=== PATIENT | male | born 1945 | race Caucasian/White ===

== ENCOUNTER 2018-11-23 08:01 | Emergency (ER) | payer MEDICARE, OTHER ==
[2018-11-23] MEDS ORDERED: LIDOCAINE 2% URO-JET 5 ML SYRINGE UR STA (08:19)
--- NOTE | 2018-11-23 08:20 | ED Physician Documentation ---
PD HPI MALE - Stated complaint Stated Complaint: SIDE PX - Chief complaint Chief Complaint: Abd Pain - History obtained from History obtained from: Patient - History of Present Illness Timing - onset: How many hours ago (6) Timing - duration: Hours (6) Timing - details: Still present Associated symptoms: Unable to urinate, Abdominal pain Similar symptoms before: No diagnosis - Additional information Additional information: The patient is a 73-year-old male who presents with lower abdominal pain and inability to urinate. His symptoms started at 2 AM, about 6 hours prior to arrival. He reports associated nausea, without vomiting. He denies fever or ba ck pain. He has a history of similar but less severe symptoms twice over the past 6 months. Both of those episodes resolved spontaneously without seeking medical attention. He has a history of BPH, for which he is on Flomax. Review of Systems Constitutional: denies: Fever Nose: denies: Congestion Cardiac: denies: Chest pain / pressure Respiratory: denies: Dyspnea, Cough GI: reports: Abdominal Pain, Nausea. denies: Vomiting, Diarrhea : reports: Unable to Void. denies: Dysuria Skin: denies: Rash Musculoskeletal: denies: Back pain Neurologic: denies: Focal weakness, Numbness, Headache PD PAST MEDICAL HISTORY - Past Medical History Cardiovascular: High cholesterol Respiratory: None Endocrine/Autoimmune: None GI: None : Benign prostate hypertrophy HEENT: None Psych: None Musculoskeletal: None Derm: None - Past Surgical History Ortho: Other - Present Medications Home Medications: Ambulatory Orders Medication Instructions Recorded Confirmed Aspirin [Aspir-Low] 81 mg PO DAILY 06/23/16 06/24/16 Atorvastatin Calcium 20 mg PO DAILY 06/23/16 06/24/16 Tamsulosin HCl [Flomax] 0.4 mg PO DAILY 06/23/16 06/24/16 - Allergies Allergies/Adverse Reactions: Allergies Allergy/AdvReac Type Severity Reaction Status Date / Time No Known Drug Allergies Allergy Verified 11/23/18 08:14 - Social History Does the pt smoke?: No PD ED PE NORMAL - Vitals Vital signs reviewed: Yes (hypertensive) - General General: Alert and oriented X 3, Well developed/nourished, Other (Standing at the bedside.) - HEENT HEENT: Atraumatic, Pharynx benign - Neck Neck: No adenopathy, No JVD - Cardiac Cardiac: RRR, No murmur - Respiratory Respiratory: No respiratory distress, Clear bilaterally - Abdomen Abdomen: Normal bowel sounds, Soft, Other (Lower abdominal pain, with distended bladder.) - Back Back: No CVA TTP - Derm Derm: No rash - Extremities Extremities: No edema, No calf tenderness / cord - Neuro Neuro: Alert and oriented X 3, No motor deficit, Normal speech Results - Vitals Vitals: Vital Signs - 24 hr 11/23/18 08:05 Temperature 36.5 C Heart Rate 76 Respiratory 18 Rate Blood Pressure 184/81 H O2 Saturation 95 Oxygen O2 Source Room air - Labs Labs: Laboratory Tests 11/23/18 08:32 Urine Color YELLOW Urine Clarity CLEAR Urine pH 5.0 Ur Specific [place] 1.020 Urine Protein NEGATIVE Urine Glucose (UA) NEGATIVE Urine Ketones NEGATIVE Urine Occult Blood LARGE H Urine Nitrite NEGATIVE Urine Bilirubin NEGATIVE Urine Urobilinogen 0.2 (NORMAL) Ur Leukocyte Esterase NEGATIVE Urine RBC 11-25 H Urine WBC 0-3 Ur Squamous Epith Cells NONE SEEN Urine Bacteria Rare Urine Mucus Few Strands Ur Microscopic Review INDICATED Urine Culture Comments NOT INDICATED PD MEDICAL DECISION MAKING - ED course Complexity details: reviewed results, re-evaluated patient, considered differential, d/w patient, d/w family ED course: The patient's presentation is most consistent with acute urinary retention. His urinalysis reveals no evidence to suggest urinary tract infection. Treatment in the emergency department included administration of Sales catheter with subsequent drainage of nearly 1 L clear yellow urine. On reexamination his abdomen is benign. A Sales leg bag was placed. I discussed his condition with Dr. Peterson, his urologist, who agrees with keeping the Sales catheter in place. I discussed with him and his the importance of follow-up with his urologist, as well as potentially worrisome signs or symptoms that should prompt reevaluation in the emergency department. Departure - Departure Disposition: 01 Home, Self Care Clinical Impression: Acute urinary retention Condition: Stable Instructions: ED Catheter Care Sales, ED Retention Urinary Male Follow-Up: Raffaele Peterson MD [Physician No Access] - Simon Crockett MD [Primary Care Provider] - Comments: Keep the Sales catheter in place for 1 week. Follow-up with your urologist next week. Call today or tomorrow to schedule the appointment for next week. Return to the emergency department if you develop problems with the Sales catheter, fever, vomiting, increasing abdominal pain, or otherwise worsening symptoms.
[2018-11-23 09:01] LABS: BILIRUBIN,URINE NEGATIVE (NEGATIVE); GLUCOSE, URINE (UA) NEGATIVE (NEGATIVE); KETONES,URINE (UA) NEGATIVE (NEGATIVE); LEUKOCYTE ESTERASE, URINE NEGATIVE (NEGATIVE); NITRITE,URINE NEGATIVE (NEGATIVE); OCCULT BLOOD,URINE LARGE (NEGATIVE); PROTEIN,URINE NEGATIVE (NEGATIVE); UROBILINOGEN,URINE 0.2 (NORMAL) E.U./dL (NORMAL)
[2018-11-23 09:04] LABS: CLARITY,URINE CLEAR (CLEAR)
[2018-11-23 09:17] LABS: SQUAMOUS EPITHELIAL CELL,UR NONE SEEN (<= Few)
[2018-11-23 09:18] LABS: BACTERIA,URINE Rare /HPF (None Seen); MUCUS,URINE Few Strands
[2018-11-23 10:47] VITALS: BP 137/76
== END 2018-11-23 10:47 | disposition home or self-care (01) ==
LOC: ED 08:01
DX: R33.9 Retention of urine, unspecified (principal)
CPT/HCPCS: 51702; 81001; 81003; 87086; 99282; 99283

== ENCOUNTER 2018-12-07 01:21 | Emergency (ER) | payer MEDICARE, OTHER ==
[2018-12-07 01:28] VITALS: BP 178/98
--- NOTE | 2018-12-07 01:35 | ED Physician Documentation ---
History of Present Illness - Stated complaint Stated Complaint: MALE - Chief complaint Chief Complaint: General - History obtained from History obtained from: Patient - History of Present Illness Timing: Prior to arrival - Additonal information Additional information: Patient is a 73-year-old male with history of BPH presenting with urinary retention over the past several hours. Patient was in this ED about 2 weeks ago for similar issues and a Sales catheter was placed. Patient followed up with his urologist yesterday and the catheter was removed, but his urologist warned him that retention can return and he possibly would need a repeat catheterization. Patient has doubled up on his Flomax at home and is otherwise to follow-up with his urologist to discuss further options and interventions including TURP. Patient describes suprapubic abdominal tenderness, Dysuria but denies other abdominal pain, fever, vomiting, Hematuria or other complaints. No other improving or worsening factors noted. Review of Systems Constitutional: denies: Fever GI: reports: Abdominal Pain : reports: Dysuria PD PAST MEDICAL HISTORY - Past Medical History Past Medical History: Yes Cardiovascular: High cholesterol Respiratory: None Endocrine/Autoimmune: None GI: None : Benign prostate hypertrophy HEENT: None Psych: None Musculoskeletal: None Derm: None - Past Surgical History Past Surgical History: Yes Ortho: Other - Present Medications Home Medications: Ambulatory Orders Medication Instructions Recorded Confirmed Aspirin [Aspir-Low] 81 mg PO DAILY 06/23/16 12/07/18 Atorvastatin Calcium 20 mg PO DAILY 06/23/16 12/07/18 Tamsulosin HCl [Flomax] 0.4 mg PO DAILY 06/23/16 12/07/18 Ciprofloxacin [Cipro] 500 mg PO Q12H #14 tablet 12/07/18 - Allergies Allergies/Adverse Reactions: Allergies Allergy/AdvReac Type Severity Reaction Status Date / Time No Known Drug Allergies Allergy Verified 12/07/18 01:27 - Social History Does the pt smoke?: No Smoking Status: Never smoker Does the pt drink ETOH?: Yes Does the pt have substance abuse?: No PD ED PE NORMAL - Vitals Vital signs reviewed: Yes (hypertensive (similar to previous visit)) - General General: Alert and oriented X 3, No acute distress, Well developed/nourished - HEENT HEENT: Atraumatic - Cardiac Cardiac: RRR, No murmur - Respiratory Respiratory: No respiratory distress, Clear bilaterally - Abdomen Abdomen: Normal bowel sounds, Soft, Non distended. No: Non tender (Moderate suprapubic tenderness) - Derm Derm: Normal color, Warm and dry, No rash - Extremities Extremities: No deformity, No tenderness to palpate - Neuro Neuro: Alert and oriented X 3, No motor deficit, No sensory deficit - Psych Psych: Normal mood, Normal affect Results - Vitals Vitals: Vital Signs - 24 hr 12/07/18 01:23 Temperature 36.4 C L Heart Rate 88 Respiratory 16 Rate Blood Pressure 178/98 H O2 Saturation 98 Oxygen O2 Source Room air - Labs Labs: Laboratory Tests 12/07/18 01:38 Urine Color YELLOW Urine Clarity CLEAR Urine pH 6.0 Ur Specific [place] <=1.005 Urine Protein NEGATIVE Urine Glucose (UA) NEGATIVE Urine Ketones NEGATIVE Urine Occult Blood TRACE-INTA Urine Nitrite NEGATIVE Urine Bilirubin NEGATIVE Urine Urobilinogen 0.2 (NORMAL) Ur Leukocyte Esterase TRACE H Urine RBC 0-5 Urine WBC 6-10 H Ur Squamous Epith Cells FEW Squamous Urine Bacteria Few Ur Microscopic Review INDICATED Urine Culture Comments INDICATED PD MEDICAL DECISION MAKING - ED course Complexity details: reviewed results, re-evaluated patient, considered differential, d/w patient, d/w family ED course: Patient presenting with urinary retention likely due to his underlying BPH. Patient recently had Sales catheter removal and was warned against recurrent re tention. Do not find evidence that would indicate nephrolithiasis, pyelonephritis, or other acute or emergent intra-abdominal pathology at this time. No evidence of systemic illness or sepsis present. Patient able to urinate small amount on his own but bladder scan showed several hundred ccs retained. Sales catheter placed with appropriate return.UA concerning for infection and given symptoms and recent interpretation, feel most appropriate to treat with antibiotics. Patient received first dose of antibiotic's in the ED. Discussed return precautions, use of antibiotics at home, continue Flomax, as well as need to contact urology as soon as possible to schedule outpatient follow-up. Patient and voiced understanding and are comfortable with discharge plan. Departure - Departure Disposition: ED Transfer to [facility] Clinical Impression: Acute urinary retention Urinary tract infection Qualifiers: Urinary tract infection type: acute cystitis Hematuria presence: without hematuria Qualified Code(s): N30.00 - Acute cystitis without hematuria Condition: Good Instructions: ED UTI Cystitis Male Follow-Up: Simon Crockett MD [Primary Care Provider] - Within 3 Days Raffaele Peterson MD [Physician No Access] - Tomorrow Prescriptions: Ciprofloxacin [Cipro] 500 mg PO Q12H #14 tablet Comments: Please continue home medications as previously instructed. Please take ciprofloxacin as instructed to treat bladder infection. Please contact your urologist later today to discuss replacement of Sales catheter and further interventions. May also follow-up with primary care physician in next 2 to 3 days. Return to ED sooner if experience worsening symptoms or other concerns.
[2018-12-07 01:48] LABS: BILIRUBIN,URINE NEGATIVE (NEGATIVE); CLARITY,URINE CLEAR (CLEAR); GLUCOSE, URINE (UA) NEGATIVE (NEGATIVE); KETONES,URINE (UA) NEGATIVE (NEGATIVE); LEUKOCYTE ESTERASE, URINE TRACE (NEGATIVE); NITRITE,URINE NEGATIVE (NEGATIVE); OCCULT BLOOD,URINE TRACE-INTA (NEGATIVE); PROTEIN,URINE NEGATIVE (NEGATIVE); UROBILINOGEN,URINE 0.2 (NORMAL) E.U./dL (NORMAL)
[2018-12-07 01:57] LABS: BACTERIA,URINE Few /HPF (None Seen); RBC,URINE 0-5 /HPF (0-5); SQUAMOUS EPITHELIAL CELL,UR FEW Squamous (<= Few)
[2018-12-07] MEDS ORDERED: CIPROFLOXACIN 250 MG TABLET PO STA (02:08)
== END 2018-12-07 02:30 | disposition home or self-care (01) ==
LOC: ED 01:21
DX: N40.1 Benign prostatic hyperplasia with lower urinary tract symptoms (principal); R33.8 Other retention of urine; N30.00 Acute cystitis without hematuria; Z79.82 Long term (current) use of aspirin
CPT/HCPCS: 51702; 81001; 87086; 99283; A9270; 81003